=== PATIENT | male | born 1955 | race Caucasian/White ===

== ENCOUNTER 2022-03-28 23:59 | Inpatient (IN) | payer MEDICARE, OTHER ==
[~2022-03-28] VITALS: Ht 175.3 cm; Wt 103.0 kg
[2022-03-29] VITALS: BP 125/83
[2022-03-29] MEDS ORDERED: DILTIAZEM HCL 25 MG IV IV PRN (02:00)
[2022-03-29] MEDS ORDERED: MAGNESIUM HYDROXIDE 30 ML LIQUID UDC PO PRN (02:00)
[2022-03-29] MEDS ORDERED: ZINC OXIDE OINT 30 GM TUBE TOP PRN (02:00)
[2022-03-29] MEDS ORDERED: ONDANSETRON 4 MG/2 ML VIAL IV PRN (02:00)
[2022-03-29] MEDS ORDERED: MELATONIN 3 MG TABLET PO PRN (02:00)
[2022-03-29] MEDS ORDERED: DOCUSATE SODIUM 100 MG CAPSULE PO PRN (02:00)
[2022-03-29] MEDS ORDERED: MIDODRINE HCL 5 MG TABLET PO PRN (02:00)
[2022-03-29] MEDS ORDERED: ACETAMINOPHEN 325 MG TABLET PO PRN ×2 (02:00)
[2022-03-29] MEDS: IV NS 1000 ML 1,000 ML IV SCH (03:47)
[2022-03-29 04:00] VITALS: BP 123/86
[2022-03-29 06:40] LABS: HEMATOCRIT 42.4 % (36.7-47.1); MEAN CORPUSCULAR HEMOGLOBIN 28.6 uug (23.8-33.4); MEAN CORPUSCULAR VOLUME 87.2 fL (73.0-96.2); PLATELET COUNT (AUTO) 236 K/uL (152-348)
[2022-03-29] MEDS: LEVOTHYROXINE SODIUM 50 MCG TABLET PO SCH (06:41)
[2022-03-29 07:18] LABS: CREATININE 1.1 mg/dL (0.6-1.3); MAGNESIUM 1.8 mg/dL (1.8-2.4); PHOSPHOROUS 3.3 mg/dL (2.5-4.9); POTASSIUM 3.8 mmol/L (3.5-5.1)
[2022-03-29] MEDS ORDERED: METOPROLOL TARTRATE 25 MG TABLET PO SCH (09:00)
[2022-03-29] MEDS ORDERED: MAGNESIUM OXIDE 400 MG TABLET PO ONE (09:00)
[2022-03-29] MEDS: FAMOTIDINE 20 MG TABLET PO SCH (09:56)
[2022-03-29] MEDS: CHOLECALCIFEROL 1,000 UNIT TABLET PO SCH (09:57)
[2022-03-29] MEDS: risperiDONE 0.25 MG TABLET PO SCH (09:57)
[2022-03-29] MEDS: MULTIVIT, IRON, MIN NO. 8, FA TABLET PO SCH (09:57)
[2022-03-29] MEDS: ASCORBIC ACID 500 MG TABLET PO SCH (09:57)
[2022-03-29] MEDS: ALLOPURINOL 300 MG TABLET PO SCH (09:57)
[2022-03-29] MEDS: APIXABAN 5 MG TABLET PO SCH ×2 (09:58→21:27)
[2022-03-29] MEDS: AMIODARONE HCL 200 MG TABLET PO SCH (09:59)
[2022-03-29 11:48] VITALS: BP 109/85
[2022-03-29 13:50] LABS: *BILIRUBIN,URIN NEGATIVE (NEGATIVE); *BLOOD, URINE NEGATIVE (NEGATIVE); *CLARITY,URINE CLEAR (CLEAR); *COLOR,URINE YELLOW (YELLOW); *KETONES,URINE NEGATIVE (NEGATIVE); LEUKOCYTE ESTERASE ,URINE NEGATIVE (NEGATIVE); NITRITE, URINE NEGATIVE (NEGATIVE); UGLUCOSE NEGATIVE (NEGATIVE)
[2022-03-29 15:47] VITALS: BP 98/63
[2022-03-29] MEDS ORDERED: FAMO-132 PO (16:36)
[2022-03-29] MEDS ORDERED: MULT-24 PO (16:36)
[2022-03-29] MEDS ORDERED: AMIO100T4 PO (16:36)
[2022-03-29] MEDS ORDERED: LEVO50TA PO (16:36)
[2022-03-29] MEDS ORDERED: METO25TA3 PO (16:36)
[2022-03-29] MEDS ORDERED: ALLO300T2 PO (16:36)
[2022-03-29] MEDS ORDERED: RISP0.2515 PO (16:36)
[2022-03-29] MEDS ORDERED: CHOL100062 PO (16:36)
[2022-03-29] MEDS ORDERED: PRAV10TA40 PO (16:36)
[2022-03-29] MEDS ORDERED: APIX5TAB PO (16:38)
[2022-03-29] MEDS: METOPROLOL TARTRATE 25 MG TABLET PO SCH (18:22)
[2022-03-29 20:00] VITALS: BP 131/85
[2022-03-29] MEDS: SENNOSIDES 1 TABLET PO SCH (21:22)
[2022-03-29] MEDS: SIMVASTATIN 10 MG TABLET PO SCH (21:23)
[2022-03-30] VITALS: BP 117/70
[2022-03-30 04:00] VITALS: BP_SYST 127; BP_SYST 139; BP_DIAS 79; BP_DIAS 86
[2022-03-30] MEDS: IV NS 1000 ML 1,000 ML IV SCH (05:37)
[2022-03-30] MEDS: LEVOTHYROXINE SODIUM 50 MCG TABLET PO SCH (05:38)
--- NOTE | 2022-03-30 07:30 | NUR ---
RECEIVED PATIENT IN BED AWAKE ALERT AND ORIENTED HARD OF HEARING DENIES PAIN OR DISCOMFORTS AT THIS TIME PATIENT IS ON ROOM AIR WITH NO SOB AT THIS TIME TELE IS AFIB CONTROLLED CALL LIGHTS AND PERSONAL BELONGINGS ARE WITHIN EASY REACH AT THIS TIME WILL CONTINUE TO OBSERVE.
[2022-03-30 07:37] LABS: HEMATOCRIT 41.9 % (36.7-47.1); MEAN CORPUSCULAR HEMOGLOBIN 28.8 uug (23.8-33.4); MEAN CORPUSCULAR VOLUME 88.3 fL (73.0-96.2); PLATELET COUNT (AUTO) 251 K/uL (152-348)
[2022-03-30 07:39] LABS: CREATININE 1.1 mg/dL (0.6-1.3); MAGNESIUM 1.9 mg/dL (1.8-2.4); PHOSPHOROUS 3.6 mg/dL (2.5-4.9)
--- NOTE | 2022-03-30 08:45 | NUR ---
TROPONIN LEVEL IS [address] CHENG TRENDING IN THE RIGHT DIRECTION WILL CONTINUE TO OBSERVE.
[2022-03-30] MEDS: CHOLECALCIFEROL 1,000 UNIT TABLET PO SCH (08:55)
[2022-03-30] MEDS: ASCORBIC ACID 500 MG TABLET PO SCH (08:55)
[2022-03-30] MEDS: MULTIVIT, IRON, MIN NO. 8, FA TABLET PO SCH (08:55)
[2022-03-30] MEDS: ALLOPURINOL 300 MG TABLET PO SCH (08:56)
[2022-03-30] MEDS: METOPROLOL TARTRATE 25 MG TABLET PO SCH ×2 (08:56→16:47)
[2022-03-30] MEDS: AMIODARONE HCL 200 MG TABLET PO SCH (08:56)
[2022-03-30] MEDS: risperiDONE 0.25 MG TABLET PO SCH (09:26)
[2022-03-30] MEDS: FAMOTIDINE 20 MG TABLET PO SCH (09:26)
[2022-03-30] MEDS: APIXABAN 5 MG TABLET PO SCH ×2 (09:32→20:05)
[2022-03-30 11:25] VITALS: BP 111/80
[2022-03-30 16:06] VITALS: BP 107/74
--- NOTE | 2022-03-30 19:30 | NUR ---
Received Pt from Day shift. Pt is A&Ox3 and cooperative. Pt on Rm Air. Afib on tele. Safety measures in place. Will continue to monitor.
[2022-03-30 20:00] VITALS: BP 106/74
[2022-03-30] MEDS: SENNOSIDES 1 TABLET PO SCH (20:06)
[2022-03-30] MEDS: SIMVASTATIN 10 MG TABLET PO SCH (20:06)
[2022-03-30] MEDS ORDERED: APIX5TAB PO (20:20)
[2022-03-30] MEDS ORDERED: SIMV10TA98 PO (20:20)
[2022-03-30] MEDS ORDERED: Multivit, Iron, Min No. 8, Fa PO (20:20)
[2022-03-30] MEDS ORDERED: MIDO5TAB4 PO (20:20)
[2022-03-30] MEDS ORDERED: DOCU-141 PO (20:20)
[2022-03-30] MEDS ORDERED: LEVO50TA8 PO (20:20)
[2022-03-30] MEDS ORDERED: ZINC56.713 TOP (20:20)
[2022-03-30] MEDS ORDERED: ALLO300T2 PO (20:20)
[2022-03-30] MEDS ORDERED: ACET325T53 PO (20:20)
[2022-03-30] MEDS ORDERED: CHOL100062 PO (20:20)
[2022-03-30] MEDS ORDERED: MELA3TAB41 PO (20:20)
[2022-03-30] MEDS ORDERED: SENN-175 PO (20:20)
[2022-03-30] MEDS ORDERED: FAMO20TA8 PO (20:20)
[2022-03-30] MEDS ORDERED: MAGN400O6 PO (20:20)
[2022-03-30] MEDS ORDERED: ASCO500T21 PO (20:20)
[2022-03-30] MEDS ORDERED: AMIO200T6 PO (20:20)
[2022-03-30] MEDS ORDERED: RISP0.2515 PO (20:20)
[2022-03-30] MEDS ORDERED: METO25TA6 PO (20:20)
[2022-03-31] VITALS: BP 118/79
[2022-03-31] MEDS: IV NS 1000 ML 1,000 ML IV SCH (02:01)
[2022-03-31 04:00] VITALS: BP 114/87
[2022-03-31] MEDS ORDERED: DIGOXIN 500 MCG/2 ML AMP IV ONE ×2 (05:30→23:30)
[2022-03-31] MEDS: LEVOTHYROXINE SODIUM 50 MCG TABLET PO SCH (06:13)
--- NOTE | 2022-03-31 06:50 | NUR ---
End of shift Note: Pt is A&Ox3 and cooperative. Pt on Rm Air. Afib/Aflutter on tele. Safety measures in place. Will continue to monitor.
[2022-03-31 07:01] LABS: HEMATOCRIT 41.3 % (36.7-47.1); MEAN CORPUSCULAR HEMOGLOBIN 28.7 uug (23.8-33.4); MEAN CORPUSCULAR VOLUME 87.1 fL (73.0-96.2); PLATELET COUNT (AUTO) 258 K/uL (152-348)
[2022-03-31 07:36] LABS: CREATININE 1.1 mg/dL (0.6-1.3); MAGNESIUM 1.7 mg/dL (1.8-2.4); PHOSPHOROUS 3.6 mg/dL (2.5-4.9); POTASSIUM 4.1 mmol/L (3.5-5.1)
[2022-03-31] MEDS: MULTIVIT, IRON, MIN NO. 8, FA TABLET PO SCH (08:07)
[2022-03-31] MEDS: ASCORBIC ACID 500 MG TABLET PO SCH (08:08)
[2022-03-31] MEDS: FAMOTIDINE 20 MG TABLET PO SCH (08:08)
[2022-03-31] MEDS: risperiDONE 0.25 MG TABLET PO SCH (08:08)
[2022-03-31] MEDS: METOPROLOL TARTRATE 25 MG TABLET PO SCH ×2 (08:08→16:14)
[2022-03-31] MEDS: ALLOPURINOL 300 MG TABLET PO SCH (08:08)
[2022-03-31] MEDS: CHOLECALCIFEROL 1,000 UNIT TABLET PO SCH (08:08)
[2022-03-31] MEDS: AMIODARONE HCL 200 MG TABLET PO SCH (08:08)
[2022-03-31] MEDS: APIXABAN 5 MG TABLET PO SCH ×2 (08:09→20:05)
--- NOTE | 2022-03-31 09:40 | NUR ---
pt walked in the hallway per md orders pt hr went up to 178 md notified
[2022-03-31] MEDS ORDERED: MAGNESIUM OXIDE 400 MG TABLET PO ONE (11:00)
[2022-03-31 12:00] VITALS: BP 116/73
[2022-03-31 15:53] VITALS: BP 113/74
[2022-03-31] MEDS ORDERED: DIGOXIN 500 MCG/2 ML AMP IV STA (17:30)
[2022-03-31] MEDS: MAGNESIUM SULFATE/D5W 100 ML IV SCH ×2 (18:31→18:47)
[2022-03-31] MEDS: SIMVASTATIN 10 MG TABLET PO SCH (20:04)
[2022-03-31] MEDS: SENNOSIDES 1 TABLET PO SCH (20:08)
[2022-03-31 20:18] VITALS: BP 97/72
[2022-04-01 00:08] VITALS: BP 117/82
[2022-04-01] MEDS: IV NS 1000 ML 1,000 ML IV SCH (01:42)
[2022-04-01 04:02] VITALS: BP 130/84
[2022-04-01] MEDS ORDERED: DIGOXIN 500 MCG/2 ML AMP IV ONE (05:30)
[2022-04-01] MEDS: LEVOTHYROXINE SODIUM 50 MCG TABLET PO SCH (06:00)
[2022-04-01 07:34] LABS: HEMATOCRIT 42.3 % (36.7-47.1); MEAN CORPUSCULAR HEMOGLOBIN 29.2 uug (23.8-33.4); MEAN CORPUSCULAR VOLUME 87.2 fL (73.0-96.2); PLATELET COUNT (AUTO) 235 K/uL (152-348)
[2022-04-01 07:45] LABS: CREATININE 1.1 mg/dL (0.6-1.3); PHOSPHOROUS 3.5 mg/dL (2.5-4.9); POTASSIUM 4.4 mmol/L (3.5-5.1)
[2022-04-01] MEDS ORDERED: AMIODARONE HCL 200 MG TABLET PO SCH ×2 (09:00)
[2022-04-01] MEDS: APIXABAN 5 MG TABLET PO SCH (09:29)
[2022-04-01] MEDS: FAMOTIDINE 20 MG TABLET PO SCH (09:29)
[2022-04-01] MEDS: CHOLECALCIFEROL 1,000 UNIT TABLET PO SCH (09:29)
[2022-04-01] MEDS: ASCORBIC ACID 500 MG TABLET PO SCH (09:29)
[2022-04-01] MEDS: MULTIVIT, IRON, MIN NO. 8, FA TABLET PO SCH (09:29)
[2022-04-01] MEDS: ALLOPURINOL 300 MG TABLET PO SCH (09:29)
[2022-04-01] MEDS: risperiDONE 0.25 MG TABLET PO SCH (09:29)
[2022-04-01] MEDS: METOPROLOL TARTRATE 25 MG TABLET PO SCH (09:33)
[2022-04-01 11:49] VITALS: BP 100/66
--- NOTE | 2022-04-01 12:04 | NUR ---
pt went down the hallway per Dr Drake request and his BP after walk was stable 119/73, pulse 85.
--- NOTE | 2022-04-01 14:18 | NUR ---
pt is getting picked up by ambulance back to his B/C facility [facility]. He has zero pain, vitals are stable, hew is a/o x 4 in a happy mood.
[2022-04-01] MEDS ORDERED: DIGO0.12 PO (15:26)
[2022-04-02] MEDS ORDERED: DIGOXIN 125 MCG TABLET PO SCH (09:00)
== END 2022-04-01 14:20 | DRG 308 ==
LOC: TELE3 23:59
PROVIDERS: ADMIT Internal Medicine; ATTEND Internal Medicine
DX: I48.0 Paroxysmal atrial fibrillation (principal); I50.33 Acute on chronic diastolic (congestive) heart failure; N17.0 Acute kidney failure with tubular necrosis; E03.9 Hypothyroidism, unspecified; E78.5 Hyperlipidemia, unspecified; F41.9 Anxiety disorder, unspecified; K21.9 Gastro-esophageal reflux disease without esophagitis; I48.92 Unspecified atrial flutter; R62.50 Unspecified lack of expected normal physiological development in childhood; M10.9 Gout, unspecified; I95.9 Hypotension, unspecified; R77.8 Other specified abnormalities of plasma proteins; I25.9 Chronic ischemic heart disease, unspecified
CPT/HCPCS: 36415; 71045; 83550; 83605; 83735; 84100; 84484; 85025; 87040; 93307; A4663; G0378; J1160; J3475; J3490; J7040